=== PATIENT | male | born 1995 | race Asian ===

== ENCOUNTER 2018-08-28 17:02 | Emergency (ER) | payer BC, OTHER ==
[2018-08-28 17:08] VITALS: BP 125/82; PULSE 95; TEMP 98.2; BMI 28.8
--- NOTE | 2018-08-28 17:08 | PDOC ---
Rapid Medical Evaluation Time Seen by Provider: 08/28/18 17:05 Medical Evaluation: Allergies Allergy/AdvReac Type Severity Reaction Status Date / Time No Known Allergies Allergy Verified 09/09/14 08:51 08/28/18 17:05 Pt c/o: left foot pain x 2 weeks after playing sports, pt staes while walking here slipped on ice pellets and now pain to mid foot has worsened Pt on brief exam: tenderness over lt 1st mtp, no crepitus or deformity, pt ambulatory without limp Pt ordered for: none Pt to proceed to the ED Discharge Disposition - Diagnosis Foot pain, left - Referrals - Patient Instructions - Post Discharge Activity
[2018-08-28] MEDS ORDERED: IBUPROFEN 600 MG TABLET (FP) PO ONE ×2 (17:56→18:01)
--- NOTE | 2018-08-28 18:03 | PDOC ---
History of Present Illness - General Chief Complaint: Injury Stated Complaint: FOOT INJURY Time Seen by Provider: 08/28/18 17:05 History Source: Patient Exam Limitations: No Limitations - History of Present Illness Initial Comments: 08/28/18 17:58 HISTORY OF PRESENT ILLNESS: 22-year-old male denies medical history presents emergency department for evaluation of left foot pain for 2 weeks while playing basketball. Patient states he tried to push off on his left foot causing his foot to twist which elicited pain over the midfoot. Patient has been ambulatory on foot since the injury. No recent travel or sick contacts. PAST MEDICAL HISTORY: Denies past medical history SURGICAL HISTORY: Denies ALLERGIES: No known drug allergies REVIEW OF SYSTEMS General/Constitutional: Denies fever or chills. Denies weakness, weight change. HEENT: Denies change in vision. Denies ear pain or discharge. Denies sore throat. Cardiovascular: Denies chest pain or shortness of breath. Respiratory: Denies cough, wheezing, or hemoptysis. Gastrointestinal: Denies nausea, vomiting, diarrhea or constipation. Denies rectal bleeding. Genitourinary: Denies dysuria, frequency, or change in urination. Musculoskeletal: Left foot pain. Denies neck or back pain. Skin and breasts: Denies rash or easy bruising. Neurologic: Denies headache, vertigo, loss of consciousness, or loss of sensation. Psychiatric: Denies depression or anxiety. Endocrine: Denies increased thirst. Denies abnormal weight change. Hematologic/Lymphatic: Denies anemia, easy bleeding, or history of blood clots. Allergic/Immunologic: Denies hives or skin allergy. Denies latex allergy. PHYSICAL EXAM General Appearance: Well-appearing, appropriately dressed. No apparent distress , no intoxication. Respiratory/Chest: Lungs CTAB. No shortness of breath, chest tenderness, respiratory distress, accessory muscle use. No crackles, rales, rhonchi, stridor , wheezing, dullness Cardiovascular: RRR. S1, S2. No JVD, murmur, bradycardia, tachycardia. Vascular Pulses: Dorsalis-Pedis (R): 2+, Dorsalis-Pedis (L): 2+ Musculoskeletal/Extremities: Normal inspection. FROM of all extremities, normal capillary refill. Pelvis Stable. No CVA tenderness. No tenderness to extremities, pedal edema, swelling, erythema or deformity. TTP over distal portion of left 3rd metatarsal. Integumentary: Appropriate color, dry, warm. 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 Fully oriented, alert. Appropriate mood/affect. Motor strength 5/5. No appreciable EOM palsy, facial droop or sensory deficit. Past History - Past Medical History Allergies/Adverse Reactions: Allergies Allergy/AdvReac Type Severity Reaction Status Date / Time No Known Allergies Allergy Verified 08/28/18 17:07 Home Medications: Ambulatory Orders NK [No Known Home Medication] 09/09/14 COPD: No - Suicide/Smoking/Psychosocial Hx Smoking Status: No Smoking History: Never smoked Have you smoked in the past 12 months: No Number of Cigarettes Smoked Daily: 0 Information on smoking cessation initiated: No Hx Alcohol Use: No Drug/Substance Use Hx: No Substance Use Type: None *Physical Exam - Vital Signs Last Vital Signs Temp Pulse Resp BP Pulse Ox 98.2 F 95 H 18 125/82 100 08/28/18 17:06 08/28/18 17:06 08/28/18 17:06 08/28/18 17:06 08/28/18 17:06 Moderate Sedation - Procedure Monitoring Vital Signs: Procedure Monitoring Vital Signs Temperature 98.2 F 08/28/18 17:06 Pulse Rate 95 H 08/28/18 17:06 Respiratory Rate 18 08/28/18 17:06 Blood Pressure 125/82 08/28/18 17:06 O2 Sat by Pulse Oximetry (%) 100 08/28/18 17:06 ED Treatment Course - RADIOLOGY Radiology Studies Ordered: Category Date Time Status FOOT-LEFT [RAD] Stat Radiology 08/28/18 17:56 Ordered Medical Decision Making - Medical Decision Making 08/28/18 18:02 A/P: 22-year-old male left foot pain for 2 weeks Tender over the distal portion of left third metatarsal Full range of motion present DP pulses 2+ bilaterally Neurovascular intact Motrin 600 mg orally now X-rays Reassess 08/28/18 18:27 X-rays as read by me: No acute fractures or dislocations present. I'll discharge the patient home with sacha wrap and referral for orthopedics and podiatry. I discussed the physical exam findings, ancillary test results and final diagnoses with the patient. I answered all of the patient's questions. The patient was satisfied with the care received and felt comfortable with the discharge plan and treatment plan. The patient will call their primary care physician within 24 hours to arrange follow-up and will return to the Emergency Department with any new, persistent or worsening symptoms. 08/28/18 18:30 *DC/Admit/Observation/Transfer Diagnosis at time of Disposition: Sprain of foot, left Qualifiers: Encounter type: initial encounter Qualified Code(s): S93.602A - Unspecified sprain of left foot, initial encounter - Discharge Dispostion Disposition: HOME Condition at time of disposition: Stable Decision to Admit order: No - Referrals Referrals: Chris Orr MD [Staff Physician] - Darien Clarke MD [Staff Physician] - Miguel Lewis MD [Staff Physician] - - Patient Instructions Additional Instructions: Rest. Take Tylenol or Motrin as needed for pain. Follow manufacturers instructions for appropriate dosage. Apply ice for 20 minutes and removed for at least 20 minutes before reapplying the ice. Keep Sacha wrap on your foot and ankle as much as possible to control pain. Whenever possible keep your foot elevated to decrease swelling to your ankle. You've been given the number for an orthopedist and a gm video. If symptoms do not resolve within the next 7 days call for further evaluation. Return to emergency department for discoloration of the foot, numbness or tingling to the foot, worsening pain, or any other concerns. Thank you very much for choosing us to provide your emergent healthcare needs. - Post Discharge Activity Forms/Work/School Notes: Back to Work
== END 2018-08-28 18:34 | disposition home or self-care (01) ==
LOC: JERFT 17:02
DX: M79.672 Pain in left foot (principal); S93.602A Unspecified sprain of left foot, initial encounter; W01.0XXA Fall on same level from slipping, tripping and stumbling without subsequent striking against object, initial encounter; Y93.67 Activity, basketball; Y92.310 Basketball court as the place of occurrence of the external cause
CPT/HCPCS: 73630-TC-LT; 99281-25